=== PATIENT | male | born 1975 ===

== ENCOUNTER 2020-05-27 23:40 | Emergency (ER) | payer SELFPAY ==
[2020-05-28 01:16] VITALS: BP 109/78
[2020-05-28 02:02] LABS: Basophils # (Auto) 0.1 K/mm3 (0.0-0.1); Basophils % (Auto) 0.7 % (0.0-1.8); Eosinophils # (Auto) 0.2 K/mm3 (0.0-0.4); Eosinophils % (Auto) 2.2 % (0.0-4.3); Hematocrit 45.2 % (35.5-45.6); Hemoglobin 15.5 gm/dl (11.8-15.2); Lymphocytes # (Auto) 2.5 K/mm3 (1.2-5.4); Lymphocytes % (Auto) 29.6 % (13.4-35.0); Mean Corpuscular HGB Conc 34 % (32-34); Mean Corpuscular Volume 91 fl (84-94); Monocytes # (Auto) 0.7 K/mm3 (0.0-0.8); Monocytes % (Auto) 8.1 % (0.0-7.3); Platelet Count 242 K/mm3 (140-440); Red Blood Count 4.94 M/mm3 (3.65-5.03); Red Cell Distribution Width 14.8 % (13.2-15.2)
[2020-05-28 02:23] LABS: Blood Urea Nitrogen 8 mg/dL (9-20); Calcium 9.5 mg/dL (8.4-10.2); Hemolysis Index 48
[2020-05-28 02:26] LABS: BUN/Creatinine Ratio 11
[2020-05-28 03:06] LABS: Bilirubin,Urine NEG (Negative); Blood,Urine NEG (Negative); Color,Urine Yellow (Yellow); Protein,Urine <15 mg/dL mg/dL (Negative); Urobilinogen,Urine < 2.0 mg/dL (<2.0)
[2020-05-28 03:15] LABS: Amphetamine Screen,Urine PRESUMPTIVE NEGATIVE; Benzodiazepines Screen,Urine PRESUMPTIVE NEGATIVE; Cannabinoid Screen,Urine PRESUMPTIVE NEGATIVE; Cocaine Screen,Urine PRESUMPTIVE NEGATIVE; Methadone Screen,Urine PRESUMPTIVE NEGATIVE; Opiate Screen,Urine PRESUMPTIVE NEGATIVE
== END 2020-05-28 03:02 | disposition left against medical advice (07) ==
LOC: ED 23:40
DX: Z53.21 Procedure and treatment not carried out due to patient leaving prior to being seen by health care provider (principal)
CPT/HCPCS: 36415; 80048; 80307; 80320; 81001; 85025; G0480

== ENCOUNTER 2020-05-28 10:55 | Emergency (ER) | payer SELFPAY ==
[2020-05-28 11:09] VITALS: BP 110/78
== END 2020-05-28 11:47 | disposition left against medical advice (07) ==
LOC: ED 10:55
DX: R41.82 Altered mental status, unspecified (principal); Z53.21 Procedure and treatment not carried out due to patient leaving prior to being seen by health care provider

== ENCOUNTER 2020-05-29 05:15 | Emergency (ER) | payer SELFPAY ==
[2020-05-29 06:24] LABS: Basophils # (Auto) 0.1 K/mm3 (0.0-0.1); Basophils % (Auto) 0.6 % (0.0-1.8); Eosinophils # (Auto) 0.2 K/mm3 (0.0-0.4); Eosinophils % (Auto) 2.2 % (0.0-4.3); Hematocrit 47.2 % (35.5-45.6); Hemoglobin 16.1 gm/dl (11.8-15.2); Lymphocytes % (Auto) 27.9 % (13.4-35.0); Mean Corpuscular HGB Conc 34 % (32-34); Mean Corpuscular Volume 92 fl (84-94); Monocytes # (Auto) 0.6 K/mm3 (0.0-0.8); Monocytes % (Auto) 5.5 % (0.0-7.3); Platelet Count 255 K/mm3 (140-440); Red Blood Count 5.12 M/mm3 (3.65-5.03); Red Cell Distribution Width 14.9 % (13.2-15.2)
[2020-05-29 06:41] LABS: Blood Urea Nitrogen 13 mg/dL (9-20); Calcium 9.5 mg/dL (8.4-10.2); Hemolysis Index 16
[2020-05-29 06:50] LABS: BUN/Creatinine Ratio 19
[2020-05-29 08:49] LABS: Bilirubin,Urine NEG (Negative); Blood,Urine NEG (Negative); Color,Urine Yellow (Yellow); Mucus,Urine FEW /HPF; Protein,Urine <15 mg/dL mg/dL (Negative); WBC,Urine < 1.0 /HPF (0.0-6.0)
[2020-05-29 09:34] LABS: Amphetamine Screen,Urine PRESUMPTIVE NEGATIVE; Benzodiazepines Screen,Urine PRESUMPTIVE NEGATIVE; Cannabinoid Screen,Urine PRESUMPTIVE NEGATIVE; Cocaine Screen,Urine PRESUMPTIVE NEGATIVE; Methadone Screen,Urine PRESUMPTIVE NEGATIVE; Opiate Screen,Urine PRESUMPTIVE NEGATIVE
--- NOTE | 2020-05-29 10:14 | Emergency Department Report ---
HPI - General Chief Complaint: Psych Time Seen by Provider: 05/29/20 10:00 - HPI HPI: Room 12 The patient is a 45-year-old male present with a chief complaint of suicidal and homicidal ideation. The patient states he does not know if he has a psychiatric diagnosis. The patient admits to suicidal ideation and homicidal ideation. When asked for how long he has had these thoughts the patient replies to both "I do not know." Patient denies any attempts at harming himself ED Past Medical Hx - Past Medical History Previous Medical History?: Yes Hx Psychiatric Treatment: Yes - Surgical History Past Surgical History?: No Additional Surgical History: Herniorrhaphy - Family History Family history: no significant - Social History Smoking Status: Current Every Day Smoker Substance Use Type: None (Denies illicit drug use), Alcohol ED Review of Systems ROS: Stated complaint: MH EVAL Other details as noted in HPI Constitutional: no symptoms reported Respiratory: no symptoms reported Endocrine: no symptoms reported Psychiatric: homicidal thoughts, suicidal thoughts Physical Exam - Physical Exam Vital Signs: Vital Signs 05/29/20 05:20 Temperature 97.7 F Pulse Rate 88 Respiratory 18 Rate Blood Pressure 124/81 O2 Sat by Pulse 99 Oximetry Physical Exam: GENERAL: The patient is well-developed well-nourished male lying on chair not appearing to be in acute distress. [] HEENT: Normocephalic. Atraumatic. Extraocular motions are intact. Patient has moist mucous membranes. NECK: Supple. Trachea midline CHEST/LUNGS: Clear to auscultation. There is no respiratory distress noted. HEART/CARDIOVASCULAR: Regular. There is no tachycardia. There is no gallop rub or murmur. ABDOMEN: Abdomen is soft, nontender. Patient has normal bowel sounds. There is no abdominal distention. SKIN: There is no rash. There is no edema. There is no diaphoresis. NEURO: The patient is awake, alert, and oriented. The patient is cooperative. The patient has normal speech and gait. MUSCULOSKELETAL: There is no evidence of acute injury. ED Course Vital Signs 05/29/20 05:20 Temperature 97.7 F Pulse Rate 88 Respiratory 18 Rate Blood Pressure 124/81 O2 Sat by Pulse 99 Oximetry ED Medical Decision Making - Lab Data Result diagrams: 05/29/20 05:48 05/29/20 05:48 Laboratory Tests 05/29/20 05/29/20 05/29/20 05:48 05:48 05:48 WBC RBC Hgb Hct MCV MCH MCHC RDW Plt Count Lymph % (Auto) [place] % (Auto) Eos % (Auto) Baso % (Auto) Lymph # (Auto) [place] # (Auto) Eos # (Auto) Baso # (Auto) Seg Neutrophils % Seg Neutrophils # Sodium 136 L Potassium 4.3 Chloride 97.5 L Carbon Dioxide 24 Anion Gap 19 BUN 13 Creatinine 0.7 L Estimated GFR > 60 BUN/Creatinine Ratio 19 Glucose 162 H Calcium 9.5 Urine Color Urine Turbidity Urine pH Ur Specific [place] Urine Protein Urine Glucose (UA) Urine Ketones Urine Blood Urine Nitrite Urine Bilirubin Urine Urobilinogen Ur Leukocyte Esterase Urine WBC (Auto) Urine RBC (Auto) Urine Mucus Salicylates < 0.3 L Urine Opiates Screen Urine Methadone Screen Acetaminophen 5.0 L Ur Barbiturates Screen Ur Phencyclidine Scrn Ur Amphetamines Screen U Benzodiazepines Scrn Urine Cocaine Screen U Marijuana (THC) Screen Drugs of Abuse Note Plasma/Serum Alcohol 05/29/20 05/29/20 05/29/20 05:48 05:48 Unknown WBC 10.8 RBC 5.12 H Hgb 16.1 H Hct 47.2 H MCV 92 MCH 32 MCHC 34 RDW 14.9 Plt Count 255 Lymph % (Auto) 27.9 [place] % (Auto) 5.5 Eos % (Auto) 2.2 Baso % (Auto) 0.6 Lymph # (Auto) 3.0 [place] # (Auto) 0.6 Eos # (Auto) 0.2 Baso # (Auto) 0.1 Seg Neutrophils % 63.8 Seg Neutrophils # 6.9 Sodium Potassium Chloride Carbon Dioxide Anion Gap BUN Creatinine Estimated GFR BUN/Creatinine Ratio Glucose Calcium Urine Color Yellow Urine Turbidity Clear Urine pH 6.0 Ur Specific [place] 1.017 Urine Protein <15 mg/dl Urine Glucose (UA) Neg Urine Ketones Tr Urine Blood Neg Urine Nitrite Neg Urine Bilirubin Neg Urine Urobilinogen 4.0 Ur Leukocyte Esterase Neg Urine WBC (Auto) < 1.0 Urine RBC (Auto) 2.0 Urine Mucus Few Salicylates Urine Opiates Screen Urine Methadone Screen Acetaminophen Ur Barbiturates Screen Ur Phencyclidine Scrn Ur Amphetamines Screen U Benzodiazepines Scrn Urine Cocaine Screen U Marijuana (THC) Screen Drugs of Abuse Note Plasma/Serum Alcohol < 0.01 05/29/20 Unknown WBC RBC Hgb Hct MCV MCH MCHC RDW Plt Count Lymph % (Auto) [place] % (Auto) Eos % (Auto) Baso % (Auto) Lymph # (Auto) [place] # (Auto) Eos # (Auto) Baso # (Auto) Seg Neutrophils % Seg Neutrophils # Sodium Potassium Chloride Carbon Dioxide Anion Gap BUN Creatinine Estimated GFR BUN/Creatinine Ratio Glucose Calcium Urine Color Urine Turbidity Urine pH Ur Specific [place] Urine Protein Urine Glucose (UA) Urine Ketones Urine Blood Urine Nitrite Urine Bilirubin Urine Urobilinogen Ur Leukocyte Esterase Urine WBC (Auto) Urine RBC (Auto) Urine Mucus Salicylates Urine Opiates Screen Presumptive negative Urine Methadone Screen Presumptive negative Acetaminophen Ur Barbiturates Screen Presumptive negative Ur Phencyclidine Scrn Presumptive negative Ur Amphetamines Screen Presumptive negative U Benzodiazepines Scrn Presumptive negative Urine Cocaine Screen Presumptive negative U Marijuana (THC) Screen Presumptive negative Drugs of Abuse Note Disclamer Plasma/Serum Alcohol - Differential Diagnosis Suicidal ideation, homicidal ideation, schizophrenia Critical care attestation.: If time is entered above; I have spent that time in minutes in the direct care of this critically ill patient, excluding procedure time. ED Disposition Clinical Impression: Suicidal ideation, Homicidal ideation Disposition: DC/TX-65 PSY HOSP/PSY UNIT Is pt being admited?: No Does the pt Need Aspirin: No Condition: Stable Referrals: PRIMARY CARE [Primary Care Provider] - 3-5 Days Time of Disposition: 15:30
[2020-05-30 04:35] VITALS: BP 110/62
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
== END 2020-05-30 18:14 ==
LOC: ED 05:15
DX: R45.850 Homicidal ideations (principal); F17.200 Nicotine dependence, unspecified, uncomplicated
CPT/HCPCS: 36415; 80048; 80307; 80320; 81001; 85025; G0480

== ENCOUNTER 2020-06-04 02:27 | Emergency (ER) | payer SELFPAY ==
[2020-06-04 04:24] LABS: Basophils % (Auto) 0.6 % (0.0-1.8); Eosinophils # (Auto) 0.1 K/mm3 (0.0-0.4); Eosinophils % (Auto) 1.6 % (0.0-4.3); Hematocrit 46.1 % (35.5-45.6); Hemoglobin 15.9 gm/dl (11.8-15.2); Lymphocytes # (Auto) 2.2 K/mm3 (1.2-5.4); Lymphocytes % (Auto) 29.1 % (13.4-35.0); Mean Corpuscular HGB Conc 35 % (32-34); Mean Corpuscular Volume 91 fl (84-94); Monocytes # (Auto) 0.7 K/mm3 (0.0-0.8); Monocytes % (Auto) 8.6 % (0.0-7.3); Platelet Count 269 K/mm3 (140-440); Red Blood Count 5.05 M/mm3 (3.65-5.03); Red Cell Distribution Width 14.6 % (13.2-15.2)
[2020-06-04 04:41] LABS: BUN/Creatinine Ratio 11; Blood Urea Nitrogen 9 mg/dL (9-20); Calcium 10.1 mg/dL (8.4-10.2); Hemolysis Index 7
[2020-06-04 04:43] VITALS: BP 105/55
--- NOTE | 2020-06-04 06:57 | Emergency Department Report ---
ED Psych HPI - General Chief Complaint: Psych Stated Complaint: SI Time Seen by Provider: 06/04/20 06:08 Source: patient Mode of arrival: Stretcher - History of Present Illness Initial Comments: Patient is a 45-year-old male who is here stating that he is having suicidal thoughts. He states he does not have a plan. Patient was seen here several times in the last week. On his last evaluation he was uncooperative and unwilling to give any additional history. He was apparently walked to [place] from [place]. This is rather unlikely given his physical state. Patient was discharged to a homeless half-way. Patient is back seeking evaluation for his mental health issues. Denies any auditory or visual hallucinations at this time. - Related Data Allergies Allergy/AdvReac Type Severity Reaction Status Date / Time No Known Allergies Allergy Unverified 05/28/20 01:13 ED Review of Systems ROS: Stated complaint: SI Other details as noted in HPI Comment: All other systems reviewed and negative ED Past Medical Hx - Past Medical History Previous Medical History?: Yes Hx Psychiatric Treatment: Yes - Surgical History Past Surgical History?: Yes Additional Surgical History: Herniorrhaphy - Social History Smoking Status: Current Every Day Smoker Substance Use Type: Alcohol, Marijuana ED Physical Exam - General Limitations: No Limitations General appearance: alert, in no apparent distress - Head Head exam: Present: atraumatic, normocephalic - Eye Eye exam: Present: normal appearance - ENT ENT exam: Present: mucous membranes moist - Neck Neck exam: Present: normal inspection - Respiratory Respiratory exam: Present: normal lung sounds bilaterally. Absent: respiratory distress, wheezes, rales, rhonchi - Cardiovascular Cardiovascular Exam: Present: regular rate, normal rhythm, normal heart sounds. Absent: systolic murmur, diastolic murmur, rubs, gallop - GI/Abdominal GI/Abdominal exam: Present: soft, normal bowel sounds. Absent: distended, tenderness, guarding, rebound - Rectal Rectal exam: Present: deferred - Extremities Exam Extremities exam: Present: normal inspection - Back Exam Back exam: Present: normal inspection - Neurological Exam Neurological exam: Present: alert, oriented X3 - Psychiatric Psychiatric exam: Present: depressed, flat affect - Skin Skin exam: Present: warm, dry, intact, normal color. 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 Pt is a 45 year old male; The pt appears very tired. The pt denies any AH or VH. The pt does not appear to be responding to internal stimuli. The pt has poor hygeine and is disheveled. Pt denies any thoughts or plans to harm others. Pt has been calm and cooperative while in ED. Pt denies any suicidal ideations. Pt reports that he is tired. Pt reports his goal is to walk to [facility] to his sister's home. Pt previously reported a few days ago during a mental health assessment that he has been walking from [place] to get to his sister. Pt denies thoughts or plans to kill self; pt is future/goal oriented (continue walking to sister's home and follow up with food pantry/soup kitchen referral). Pt is currently homeless. RECOMMENDATION: Pt does not meet inpatient/[facility] criteria for inpatient stabilization. Pt will be given outpatient mental health referrals as well as information for half-way/ food. Pt also provided crisis number. Sugar Ryan LPC Initialized on 06/04/20 12:24 - END OF NOTE ED Medical Decision Making - Lab Data Result diagrams: 06/04/20 03:43 06/04/20 03:43 Lab Results 06/04/20 06/04/20 06/04/20 Range/Units 03:43 03:43 03:43 WBC (4.5-11.0) K/mm3 RBC (3.65-5.03) M/mm3 Hgb (11.8-15.2) gm/dl Hct (35.5-45.6) % MCV (84-94) fl MCH (28-32) pg MCHC (32-34) % RDW (13.2-15.2) % Plt Count (140-440) K/mm3 Lymph % (Auto) (13.4-35.0) % Marion % (Auto) (0.0-7.3) % Eos % (Auto) (0.0-4.3) % Baso % (Auto) (0.0-1.8) % Lymph # (Auto) (1.2-5.4) K/mm3 Marion # (Auto) (0.0-0.8) K/mm3 Eos # (Auto) (0.0-0.4) K/mm3 Baso # (Auto) (0.0-0.1) K/mm3 Seg Neutrophils % (40.0-70.0) % Seg Neutrophils # (1.8-7.7) K/mm3 Sodium 135 L (137-145) mmol/L Potassium 4.2 (3.6-5.0) mmol/L Chloride 95.7 L (98-107) mmol/L Carbon Dioxide 26 (22-30) mmol/L Anion Gap 18 mmol/L BUN 9 (9-20) mg/dL Creatinine 0.8 (0.8-1.3) mg/dL Estimated GFR > 60 ml/min BUN/Creatinine Ratio 11 % Glucose 71 L (75-100) mg/dL Calcium 10.1 (8.4-10.2) mg/dL Salicylates < 0.3 L (2.8-20.0) mg/dL Acetaminophen 5.0 L (10.0-30.0) ug/mL Plasma/Serum Alcohol (0-0.07) % 06/04/20 06/04/20 Range/Units 03:43 03:43 WBC 7.7 (4.5-11.0) K/mm3 RBC 5.05 H (3.65-5.03) M/mm3 Hgb 15.9 H (11.8-15.2) gm/dl Hct 46.1 H (35.5-45.6) % MCV 91 (84-94) fl MCH 32 (28-32) pg MCHC 35 H (32-34) % RDW 14.6 (13.2-15.2) % Plt Count 269 (140-440) K/mm3 Lymph % (Auto) 29.1 (13.4-35.0) % Marion % (Auto) 8.6 H (0.0-7.3) % Eos % (Auto) 1.6 (0.0-4.3) % Baso % (Auto) 0.6 (0.0-1.8) % Lymph # (Auto) 2.2 (1.2-5.4) K/mm3 Marion # (Auto) 0.7 (0.0-0.8) K/mm3 Eos # (Auto) 0.1 (0.0-0.4) K/mm3 Baso # (Auto) 0.0 (0.0-0.1) K/mm3 Seg Neutrophils % 60.1 (40.0-70.0) % Seg Neutrophils # 4.6 (1.8-7.7) K/mm3 Sodium (137-145) mmol/L Potassium (3.6-5.0) mmol/L Chloride (98-107) mmol/L Carbon Dioxide (22-30) mmol/L Anion Gap mmol/L BUN (9-20) mg/dL Creatinine (0.8-1.3) mg/dL Estimated GFR ml/min BUN/Creatinine Ratio % Glucose (75-100) mg/dL Calcium (8.4-10.2) mg/dL Salicylates (2.8-20.0) mg/dL Acetaminophen (10.0-30.0) ug/mL Plasma/Serum Alcohol < 0.01 (0-0.07) % Critical care attestation.: If time is entered above; I have spent that time in minutes in the direct care of this critically ill patient, excluding procedure time. ED Disposition Clinical Impression: Passive suicidal ideations, Malingering, Homelessness Disposition: DC-01 TO HOME OR SELFCARE Is pt being admited?: No Does the pt Need Aspirin: No Condition: Stable Additional Instructions: Outpatient COMMUNITY Behavioral Health Resources: [facility]) [address] [place] [address] / Saturday thru Saturday - 8am - 5pm [facility] Address: [address] [place] [id number] Saturday thru Saturday- 7am-2pm [facility] Address: [address], [place] [address] Saturday thru Saturday: 8:30AM-5PM HOMELESS RESOURCES: [facility] NEED HELP? If you are in need of help or know someone who does, please contact us at [email or web address] call , or come to our offices at [address] [place] [address], Saturday-Saturday beginning at 8AM. [facility] Admission at 7am Sat to Sat Address: [address] [place] [address] Client Engagement [phone] Regular program admission occurs Saturday through Saturday at 7:00 amand operates on a first come, first serve basis.Because we cant anticipate program availability in advance andprogram spots are in high demand, we recommend ar riving early. Space fills up fast! Next steps can include: Assignment to a [facility] program bed Connection to and placement in a partner program, or Referral to a partner agency [place]: [facility], [facility] Address: [address] [facility], [place] [address] How do I join the [facility] housing program? Our housing programs are offered based on availability. If you are looking to participate in our housing program, simply call [phone] to find out if we have available space. Since we do receive many calls, please allow up to 48 hours for one of our housing specialists to return your call. If we do not have vacancies, we suggest callingthe [facility] hotline at 211 for additional housing options. [facility] Admission at 4:30pm daily Address: [address] [facility], [place] [address] CRISIS RESOURCES [place] Crisis Line: Suicide Prevention Line: Crisis Text Line: Text START to [phone] Emergency: 911 Referrals: PRIMARY CARE, [Primary Care Provider] - 3-5 Days Time of Disposition: 13:30
== END 2020-06-04 13:44 | disposition home or self-care (01) ==
LOC: ED 02:27
DX: R45.851 Suicidal ideations (principal); Z76.5 Malingerer [conscious simulation]; Z59.0 Homelessness; F17.200 Nicotine dependence, unspecified, uncomplicated; F12.10 Cannabis abuse, uncomplicated; Z98.890 Other specified postprocedural states
CPT/HCPCS: 36415; 80048; 80320; 85025; G0480

== ENCOUNTER 2020-08-30 02:08 | Emergency (ER) | payer SELFPAY ==
--- NOTE | 2020-08-30 02:25 | Emergency Department Report ---
Blank Doc - Documentation Documentation: This is a 45-year-old male that presents with chest pain, SOB, and SI. Denies having a plan. This initial assessment/diagnostic orders/clinical plan/treatment(s) is/are subject to change based on patient's health status, clinical progression and re- assessment by fellow clinical providers in the ED. Further treatment and workup at subsequent clinical providers discretion. Patient/guardians urged not to elope from the ED as their condition may be serious if not clinically assessed and managed. Initial orders include: 1- Patient sent to MAIN ED for further evaluation and treatment 2- RN was notified to keep patient as close range and observation until room available 3- Patient presents with substantial risk of imminent harm to self, appears to be so unable to care for his/her own physical health and safety as to create an imminently life-endangering crisis, and has committed/expressed life endangering crisis to self. Due to this and other complaints, patient is put on psych hold. 4- cardiac workup
[2020-08-30 03:02] LABS: Basophils % (Auto) 0.2 % (0.0-1.8); Eosinophils # (Auto) 0.1 K/mm3 (0.0-0.4); Eosinophils % (Auto) 0.5 % (0.0-4.3); Hematocrit 43.1 % (35.5-45.6); Hemoglobin 14.9 gm/dl (11.8-15.2); Lymphocytes # (Auto) 2.8 K/mm3 (1.2-5.4); Lymphocytes % (Auto) 15.7 % (13.4-35.0); Mean Corpuscular HGB Conc 35 % (32-34); Mean Corpuscular Volume 91 fl (84-94); Monocytes # (Auto) 1.2 K/mm3 (0.0-0.8); Monocytes % (Auto) 6.8 % (0.0-7.3); Platelet Count 238 K/mm3 (140-440); Red Blood Count 4.74 M/mm3 (3.65-5.03); Red Cell Distribution Width 14.8 % (13.2-15.2)
[2020-08-30 03:13] LABS: Alanine Aminotransferase 26 units/L (7-56); Albumin 4.8 g/dL (3.9-5); Blood Urea Nitrogen 14 mg/dL (9-20); Calcium 9.6 mg/dL (8.4-10.2); Hemolysis Index 8; INR 1.04 (0.87-1.13)
[2020-08-30 03:14] LABS: Partial Thromboplastin Time 27.1 Sec. (24.2-36.6)
[2020-08-30 03:17] LABS: BUN/Creatinine Ratio 20
--- NOTE | 2020-08-30 03:20 | XRay Report ---
CHEST 2 VIEWS 0252 INDICATION / CLINICAL INFORMATION: Chest Pain COMPARISON: None available. FINDINGS: SUPPORT DEVICES: None. HEART / MEDIASTINUM: No significant abnormality. LUNGS / PLEURA: No significant pulmonary or pleural abnormality. No pneumothorax. ADDITIONAL FINDINGS: No significant additional findings. IMPRESSION: No significant acute abnormality Signer Name: Timo Barba MD Signed: 08/30/2020 3:15 AM Workstation Name: [id number]
--- NOTE | 2020-08-30 03:25 | Emergency Department Report ---
<CHILO ASENCIO - Last Filed: 08/30/20 05:52> ED Psych HPI - General Chief Complaint: Chest Pain Stated Complaint: CHEST DISCOMFORT/MH EVAL Time Seen by Provider: 08/30/20 02:20 Source: patient, EMS Mode of arrival: Ambulatory - History of Present Illness Initial Comments: Patient is 45 years old male with history of schizophrenia. Patient presented to the ER complaining of diffuse chest pain for the last 3 weeks. Patient describes his chest pain as sharp comes and goes. Patient stated that he feel his heart rate sometimes stop and then it started again. Patient denied any shortness of breath. No fever or chills. Patient stated that he is suicidal but he does not have a plan. He denied any auditory or visual hallucination. MD Complaint: suicidal ideation - Related Data Allergies Allergy/AdvReac Type Severity Reaction Status Date / Time No Known Allergies Allergy Unverified 05/28/20 01:13 ED Review of Systems Comment: All other systems reviewed and negative Constitutional: denies: chills, fever Respiratory: denies: cough, shortness of breath, SOB with exertion, SOB at rest Cardiovascular: chest pain. denies: palpitations, dyspnea on exertion Gastrointestinal: denies: abdominal pain, nausea, vomiting Musculoskeletal: denies: back pain Neurological: denies: headache, weakness, numbness, paresthesias, confusion, abnormal gait Psychiatric: depression, suicidal thoughts. denies: anxiety, auditory hallucinations, visual hallucinations, homicidal thoughts ED Past Medical Hx - Past Medical History Previous Medical History?: Yes Hx Psychiatric Treatment: Yes (depression and bipolar) - Surgical History Past Surgical History?: No Additional Surgical History: Herniorrhaphy - Social History Smoking Status: Never Smoker Substance Use Type: None ED Physical Exam - General Limitations: No Limitations General appearance: alert, in no apparent distress - Head Head exam: Present: atraumatic - Eye Eye exam: Present: normal appearance - ENT ENT exam: Present: normal exam, normal orophraynx, mucous membranes moist - Neck Neck exam: Present: normal inspection, full ROM. Absent: tenderness, meningismus - Respiratory Respiratory exam: Present: normal lung sounds bilaterally - Cardiovascular Cardiovascular Exam: Present: regular rate, normal rhythm, normal heart sounds - GI/Abdominal GI/Abdominal exam: Present: soft, normal bowel sounds. Absent: distended, tenderness, guarding, rebound, rigid, organomegaly, mass, bruit, pulsatile mass, hernia - Extremities Exam Extremities exam: Present: normal inspection, full ROM, normal capillary refill. Absent: tenderness - Back Exam Back exam: Present: normal inspection, full ROM. Absent: CVA tenderness (R), CVA tenderness (L) - Neurological Exam Neurological exam: Present: alert, oriented X3, CN II-XII intact - Psychiatric Psychiatric exam: Present: normal mood - Skin Skin exam: Present: warm, intact, normal color ED Medical Decision Making - Lab Data Result diagrams: 08/30/20 02:33 08/30/20 02:33 - Radiology Data Radiology results: report reviewed - Medical Decision Making Patient is 45 years old male with history of schizophrenia. Patient presented to the ER complaining of diffuse chest pain for the last 3 weeks. Patient describes his chest pain as sharp comes and goes. Patient stated that he feel his heart rate sometimes stop and then it started again. Patient denied any shortness of breath. No fever or chills. Patient stated that he is suicidal but he does not have a plan. He denied any auditory or visual hallucination. Labs reviewed and showed a white blood cells of 18,000 however patient does not have any fever or chills. Chest x-ray is unremarkable. Urine is negative for infection. Abdomen is soft and nontender no clinical evidence of acute abdomen. Elevated white blood cells may be from acute bronchitis. I will start patient on amoxicillin. Patient is medically clear to be assessed by our psychiatric team. ED Disposition Clinical Impression: Suicidal ideation Disposition: [id number]/TX-65 PSY HOSP/PSY UNIT Condition: Stable Instructions: Chest Pain (ED) Referrals: PRIMARY CARE, [Primary Care Provider] - 3-5 Days <MICHA WALDROP - Last Filed: 08/30/20 12:27> ED Review of Systems ROS: Stated complaint: CHEST DISCOMFORT/MH EVAL Other details as noted in HPI ED Course Vital Signs 08/30/20 08/30/20 08/30/20 02:16 03:04 08:51 Temperature 98.0 F 98.7 F Pulse Rate 77 77 77 Respiratory 17 13 16 Rate Blood Pressure 118/68 Blood Pressure 111/69 106/64 [Left] O2 Sat by Pulse 99 99 98 Oximetry 08/30/20 09:04 Temperature Pulse Rate Respiratory 18 Rate Blood Pressure Blood Pressure [Left] O2 Sat by Pulse 98 Oximetry ED Medical Decision Making - Lab Data Result diagrams: 08/30/20 02:33 08/30/20 02:33 Labs 08/30/20 08/30/20 08/30/20 02:33 02:33 02:33 WBC 18.0 H RBC 4.74 Hgb 14.9 Hct 43.1 MCV 91 MCH 32 MCHC 35 H RDW 14.8 Plt Count 238 Lymph % (Auto) 15.7 [place] % (Auto) 6.8 Eos % (Auto) 0.5 Baso % (Auto) 0.2 Lymph # (Auto) 2.8 [place] # (Auto) 1.2 H Eos # (Auto) 0.1 Baso # (Auto) 0.0 Seg Neutrophils % 76.8 H Seg Neutrophils # 13.8 H PT 13.4 INR 1.04 APTT 27.1 Sodium 140 Potassium 4.1 Chloride 100.5 Carbon Dioxide 27 Anion Gap 17 BUN 14 Creatinine 0.7 L Estimated GFR > 60 BUN/Creatinine Ratio 20 Glucose 92 Calcium 9.6 Magnesium Total Bilirubin 0.20 AST 21 ALT 26 Alkaline Phosphatase 92 Troponin T < 0.010 NT-Pro-B Natriuret Pep Total Protein 7.5 Albumin 4.8 Albumin/Globulin Ratio 1.8 Urine Color Urine Turbidity Urine pH Ur Specific [place] Urine Protein Urine Glucose (UA) Urine Ketones Urine Blood Urine Nitrite Urine Bilirubin Urine Urobilinogen Ur Leukocyte Esterase Urine WBC (Auto) Urine RBC (Auto) Urine Mucus Salicylates Urine Opiates Screen Urine Methadone Screen Acetaminophen Ur Barbiturates Screen Ur Phencyclidine Scrn Ur Amphetamines Screen U Benzodiazepines Scrn Urine Cocaine Screen U Marijuana (THC) Screen Drugs of Abuse Note Plasma/Serum Alcohol 08/30/20 08/30/20 08/30/20 02:33 02:33 02:33 WBC RBC Hgb Hct MCV MCH MCHC RDW Plt Count Lymph % (Auto) [place] % (Auto) Eos % (Auto) Baso % (Auto) Lymph # (Auto) [place] # (Auto) Eos # (Auto) Baso # (Auto) Seg Neutrophils % Seg Neutrophils # PT INR APTT Sodium Potassium Chloride Carbon Dioxide Anion Gap BUN Creatinine Estimated GFR BUN/Creatinine Ratio Glucose Calcium Magnesium 2.00 Total Bilirubin AST ALT Alkaline Phosphatase Troponin T NT-Pro-B Natriuret Pep 36.15 Total Protein Albumin Albumin/Globulin Ratio Urine Color Urine Turbidity Urine pH Ur Specific [place] Urine Protein Urine Glucose (UA) Urine Ketones Urine Blood Urine Nitrite Urine Bilirubin Urine Urobilinogen Ur Leukocyte Esterase Urine WBC (Auto) Urine RBC (Auto) Urine Mucus Salicylates < 0.3 L Urine Opiates Screen Urine Methadone Screen Acetaminophen 5.0 L Ur Barbiturates Screen Ur Phencyclidine Scrn Ur Amphetamines Screen U Benzodiazepines Scrn Urine Cocaine Screen U Marijuana (THC) Screen Drugs of Abuse Note Plasma/Serum Alcohol 08/30/20 08/30/20 08/30/20 02:33 03:01 03:01 WBC RBC Hgb Hct MCV MCH MCHC RDW Plt Count Lymph % (Auto) [place] % (Auto) Eos % (Auto) Baso % (Auto) Lymph # (Auto) [place] # (Auto) Eos # (Auto) Baso # (Auto) Seg Neutrophils % Seg Neutrophils # PT INR APTT Sodium Potassium Chloride Carbon Dioxide Anion Gap BUN Creatinine Estimated GFR BUN/Creatinine Ratio Glucose Calcium Magnesium Total Bilirubin AST ALT Alkaline Phosphatase Troponin T NT-Pro-B Natriuret Pep Total Protein Albumin Albumin/Globulin Ratio Urine Color Yellow Urine Turbidity Clear Urine pH 6.0 Ur Specific [place] 1.018 Urine Protein <15 mg/dl Urine Glucose (UA) Neg Urine Ketones Tr Urine Blood Neg Urine Nitrite Neg Urine Bilirubin Neg Urine Urobilinogen < 2.0 Ur Leukocyte Esterase Neg Urine WBC (Auto) 0.0 Urine RBC (Auto) 1.0 Urine Mucus Few Salicylates Urine Opiates Screen Presumptive negative Urine Methadone Screen Presumptive negative Acetaminophen Ur Barbiturates Screen Presumptive negative Ur Phencyclidine Scrn Presumptive negative Ur Amphetamines Screen Presumptive negative U Benzodiazepines Scrn Presumptive negative Urine Cocaine Screen Presumptive negative U Marijuana (THC) Screen Presumptive negative Drugs of Abuse Note Disclamer Plasma/Serum Alcohol < 0.01 08/30/20 04:49 WBC RBC Hgb Hct MCV MCH MCHC RDW Plt Count Lymph % (Auto) [place] % (Auto) Eos % (Auto) Baso % (Auto) Lymph # (Auto) [place] # (Auto) Eos # (Auto) Baso # (Auto) Seg Neutrophils % Seg Neutrophils # PT INR APTT Sodium Potassium Chloride Carbon Dioxide Anion Gap BUN Creatinine Estimated GFR BUN/Creatinine Ratio Glucose Calcium Magnesium Total Bilirubin AST ALT Alkaline Phosphatase Troponin T < 0.010 NT-Pro-B Natriuret Pep Total Protein Albumin Albumin/Globulin Ratio Urine Color Urine Turbidity Urine pH Ur Specific [place] Urine Protein Urine Glucose (UA) Urine Ketones Urine Blood Urine Nitrite Urine Bilirubin Urine Urobilinogen Ur Leukocyte Esterase Urine WBC (Auto) Urine RBC (Auto) Urine Mucus Salicylates Urine Opiates Screen Urine Methadone Screen Acetaminophen Ur Barbiturates Screen Ur Phencyclidine Scrn Ur Amphetamines Screen U Benzodiazepines Scrn Urine Cocaine Screen U Marijuana (THC) Screen Drugs of Abuse Note Plasma/Serum Alcohol Vital Signs 08/30/20 08/30/20 08/30/20 02:16 03:04 08:51 Temperature 98.0 F 98.7 F Pulse Rate 77 77 77 Respiratory 17 13 16 Rate Blood Pressure 118/68 Blood Pressure 111/69 106/64 [Left] O2 Sat by Pulse 99 99 98 Oximetry 08/30/20 09:04 Temperature Pulse Rate Respiratory 18 Rate Blood Pressure Blood Pressure [Left] O2 Sat by Pulse 98 Oximetry Critical care attestation.: If time is entered above; I have spent that time in minutes in the direct care of this critically ill patient, excluding procedure time. ED Disposition Is pt being admited?: Yes
[2020-08-30 03:40] LABS: Bilirubin,Urine NEG (Negative); Blood,Urine NEG (Negative); Color,Urine Yellow (Yellow); Mucus,Urine FEW /HPF; Protein,Urine <15 mg/dL mg/dL (Negative); Urobilinogen,Urine < 2.0 mg/dL (<2.0)
[2020-08-30 04:56] LABS: Amphetamine Screen,Urine PRESUMPTIVE NEGATIVE; Benzodiazepines Screen,Urine PRESUMPTIVE NEGATIVE; Cannabinoid Screen,Urine PRESUMPTIVE NEGATIVE; Cocaine Screen,Urine PRESUMPTIVE NEGATIVE; Methadone Screen,Urine PRESUMPTIVE NEGATIVE; Opiate Screen,Urine PRESUMPTIVE NEGATIVE
--- NOTE | 2020-08-30 09:56 | Consultation ---
History of Present Illness - Reason for Consult Consult date: 08/30/20 Reason for consult: suicidal - History of Present Psychiatric Illness Per ED note: "Patient is 45 years old male with history of schizophrenia. Patient presented to the ER complaining of diffuse chest pain for the last 3 weeks. Patient describes his chest pain as sharp comes and goes. Patient stated that he feel his heart rate sometimes stop and then it started again. Patient denied any shortness of breath. No fever or chills. Patient stated that he is suicidal but he does not have a plan. He denied any auditory or visual hallucination." During my interview with 45y/o Cayden Kinney, he is lying in bed, awake. He is a/o x 3. The patient says he came to the hospital for chest pain, but had been feeling suicidal. He denies having a plan. But he admits to having access to guns. The patient says he's been feeling like this over the past few days. He says he's been off his meds for about 2 months. He denies any illicit drug use or alcohol but states he smokes a pack and half daily. The patient denies hallucinations of any kind. PAST PSYCHIATRIC HISTORY Diagnoses: schizophrenia, bipolar Suicide attempts or Self-harm behavior: Denies Prior psychiatric hospitalizations: Denies Substance Abuse history: Denies Previous psychiatric medications tried: could not recall Outpatient treatment: denies PAST MEDICAL HISTORY: none reported Family Psychiatric History: None reported or documented SOCIAL HISTORY Marital Status: Living Arrangements: with spouse Employment Status: Unemployed Access to guns/weapons: Yes Education: High school diploma History of Abuse: none reported Legal History: none reported REVIEW OF SYSTEMS Constitutional: Negative for weight loss ENT: Negative for stridor Respiratory: Negative for cough or hemoptysis All other systems reviewed and are negative MENTAL STATUS EXAMINATION General Appearance and Behavior: Age appropriate, good hygiene, wearing a ppropriate clothes, good eye contact, cooperative polite with questioning. Cooperation: Participating/engaged Psychomotor Behavior: unremarkable and within normal limits Mood: "depressed" Affect and affective range: congruent with mood Thought Process: goal directed Thought Content: None Speech: Normal volume, Regular rate and rhythm, Suicidal Ideation: yes Homicidal Ideation: Denies Hallucinations: Denies Delusions: None elicited Impulse Control: Unimpaired Insight and Judgment: Limited insight and judgment, Memory: Normal Attention: Normal Orientation: Alert, oriented Assessment and Plan (1) Bipolar Disorder Current Visit: Yes Status: Acute Treatment plan [address] 125mg po BID Start Trazodone 50mg po qhs Start Melatonin 5mg po qhs prn Sitter: Defer to primary Medical: per primary Disposition: Recommend acute psychiatric inpatient Will follow. Thank you for this consult Case staffed with Dr. Jenkins Medications and Allergies Allergies Allergy/AdvReac Type Severity Reaction Status Date / Time No Known Allergies Allergy Unverified 05/28/20 01:13 Home Medications Medication Instructions Recorded Confirmed Last Taken Type Unobtainable 08/30/20 08/30/20 Unknown History Mental Status Exam - Vital signs Last Vital Signs Temp 98.7 F 08/30/20 08:51 Pulse 77 08/30/20 08:51 Resp 18 08/30/20 09:04 BP 106/64 08/30/20 08:51 Pulse Ox 98 08/30/20 09:04 Results Result Diagrams: 08/30/20 02:33 08/30/20 02:33 Abnormal lab results 08/30/20 08/30/20 08/30/20 Range/Units 02:33 02:33 02:33 WBC 18.0 H (4.5-11.0) K/mm3 MCHC 35 H (32-34) % [place] # (Auto) 1.2 H (0.0-0.8) K/mm3 Seg Neutrophils % 76.8 H (40.0-70.0) % Seg Neutrophils # 13.8 H (1.8-7.7) K/mm3 Creatinine 0.7 L (0.8-1.3) mg/dL Salicylates < 0.3 L (2.8-20.0) mg/dL Acetaminophen (10.0-30.0) ug/mL 08/30/20 Range/Units 02:33 WBC (4.5-11.0) K/mm3 MCHC (32-34) % [place] # (Auto) (0.0-0.8) K/mm3 Seg Neutrophils % (40.0-70.0) % Seg Neutrophils # (1.8-7.7) K/mm3 Creatinine (0.8-1.3) mg/dL Salicylates (2.8-20.0) mg/dL Acetaminophen 5.0 L (10.0-30.0) ug/mL All other labs normal.
[2020-08-30] MEDS: DIVALPROEX DR 125 MG TAB PO SCH ×4 (10:18→21:52)
[2020-08-30] MEDS: traZODone 50 MG TAB PO SCH (21:51)
[2020-08-30] MEDS ORDERED: MELATONIN 5 MG TAB PO PRN (22:00)
[2020-08-31] MEDS: DIVALPROEX DR 125 MG TAB PO SCH ×2 (09:59→22:28)
[2020-08-31 14:25] LABS: Hematocrit 44.8 % (35.5-45.6); Hemoglobin 15.3 gm/dl (11.8-15.2); Mean Corpuscular HGB Conc 34 % (32-34); Mean Corpuscular Volume 92 fl (84-94); Red Blood Count 4.89 M/mm3 (3.65-5.03); Red Cell Distribution Width 14.3 % (13.2-15.2)
[2020-08-31 14:26] LABS: Basophils # (Auto) 0.1 K/mm3 (0.0-0.1); Basophils % (Auto) 0.6 % (0.0-1.8); Eosinophils # (Auto) 0.2 K/mm3 (0.0-0.4); Lymphocytes % (Auto) 34.7 % (13.4-35.0); Monocytes # (Auto) 0.5 K/mm3 (0.0-0.8); Monocytes % (Auto) 5.3 % (0.0-7.3); Platelet Count 236 K/mm3 (140-440)
[2020-08-31] MEDS: traZODone 50 MG TAB PO SCH (22:28)
[2020-09-01 08:11] VITALS: BP 111/58
--- NOTE | 2020-09-01 09:34 | Progress Note ---
Subjective - Reason for Consult Consult date: 09/01/20 Reason for consult: SI - Chief Complaint Chief complaint: During my interview with the patient he is standing up in his room looking out of the window. He greets me as I enter the room. He is a/o x 3. He is calm and cooperative. He is pleasant. He verbalizes feeling "pretty good, and a lot better." The patient presently denies SI/HI or hallucinations of any kind. REVIEW OF SYSTEMS Constitutional: Negative for weight loss ENT: Negative for stridor Respiratory: Negative for cough or hemoptysis All other systems reviewed and are negative MENTAL STATUS EXAMINATION General Appearance and Behavior: Age appropriate, good hygiene, wearing appropriate clothes, good eye contact, cooperative polite with questioning. Cooperation: Participating/engaged Psychomotor Behavior: unremarkable and within normal limits Mood: "pretty good, a lot better" Affect and affective range: congruent with mood Thought Process: goal directed Thought Content: None Speech: Normal volume, Regular rate and rhythm, Suicidal Ideation: Denies Homicidal Ideation: Denies Hallucinations: Denies Delusions: None elicited Impulse Control: Unimpaired Insight and Judgment: Limited insight and judgment, Memory: Normal Attention: Normal Orientation: Alert, oriented Assessment and Plan (1) Bipolar Disorder Current Visit: Yes Status: Acute Treatment plan D/c 1013 Scripts: Depakote DR 125mg po BID Trazodone 50mg po qhs Melatonin 5mg po qhs prn Sitter: Defer to primary Medical: per primary Disposition: Do not Recommend acute psychiatric inpatient. The patient understands that if suicidal thoughts are to arise he is to seek immediate assistance including but not limited to 911/ER, crisis hotline. He is to follow up with outpatient psych in 7 to 14 days upon discharge The mixing machine attendant is to provide outpatient resources, and safety plan. Will sign off. Thank you for this consult Case staffed with Dr. Jenkins Mental Status Exam - Vital signs Last Vital Signs Temp 97.9 F 09/01/20 08:10 Pulse 61 09/01/20 08:10 Resp 20 09/01/20 08:10 BP 111/58 09/01/20 08:10 Pulse Ox 97 09/01/20 08:10
[2020-09-01] MEDS: DIVALPROEX DR 125 MG TAB PO SCH (10:53)
== END 2020-09-01 12:30 ==
LOC: ED 02:08
DX: R45.851 Suicidal ideations (principal); F31.9 Bipolar disorder, unspecified; Z20.828 Contact with and (suspected) exposure to other viral communicable diseases
CPT/HCPCS: 36415; 71046; 80053; 80307; 81001; 83735; 83880; 84484; 85025; 85610; 85730; 93005; 99285; U0003; 80320; G0480